=== PATIENT | male | born 1975 | race Hispanic/Latino ===

== ENCOUNTER 2022-04-21 23:49 | Observation (INO) | payer OTHER ==
[~2022-04-21] VITALS: Ht 172.7 cm; Wt 112.3 kg
[2022-04-22] MEDS ORDERED: LEVOTHYROXINE100 MC2 PO (00:20)
--- NOTE | 2022-04-22 03:40 | NUR ---
0248 - ADMITTED VIA W/C FROM ED. ALERT AND ORIENTED, SPEAKS [facility]HARIC WELL, SON AT BEDSIDE - 0300 - IVF INFUSING RFA. DENIES C/O ABD PAIN OR N/V AT THIS TIME. PT COOPERATIVE WITH ADMIT ASSESSMENT AND ASSESSMENT. ivf INFUSING W/O PROBLEMS, AWARE OF NPO STATUS, ORAL SPONGES AT BEDSIDE, ORIENTED TO ROOM, INSTRUCTED ON PREOP AND POST OP EXPECTATIONS IN [place], STATED UNDERSTANDING.
--- NOTE | 2022-04-22 04:15 | NUR ---
AWAKES EASILY, DENIES C/O ABD PAIN OR N/V. IVF INFUSING. NO VOID SINCE ADMIT BUT VOIDED IN THE ED PRIOR TO ADMISSION. ON ROOM AIR, COOPERATIVE. CALL LIGHT AT HANDSA REACH, NPO, ORAL SPONGES AT HANDS REACH, FAMILY ROOMING IN
--- NOTE | 2022-04-22 04:48 | NUR ---
Pt resting, eyes closed, on room air, no distress, IVF infusing, no c/o abd pain or n/v. turns and repositions self in bed, NPO does own oral care. Dr Stephen gallbladder pamphlet given in Serbian, explained in Maori. cont to pablo. Familyat bedside.
--- NOTE | 2022-04-22 06:48 | NUR ---
pT VOIDED LARGE AMOUNT OF DARK COLORED URINE. UP TO EDGE OF BED. IVF INFUSING W/O PROBLEMS. NPO, DOES OWN ORAL CARE. NO C/O ABD PAIN OR EMESIS AT THIS TIME. PLEASANT AND COOPERATIVE. FOLLOWS INSTRUTIONS. FAMILY AT BEDSIDE
--- NOTE | 2022-04-22 07:18 | NUR ---
REPORT RECEIVED FROM NAWAF ISLAS. PT RESTING IN BED, AWAKE AND ALERT. PT DENIES PAIN AND NAUSEA. PT UPDATED ON PLAN OF CARE. PT DENIES REQUESTS OR COMPLAINTS AT THIS TIME. CALL LIGHT WITHIN REACH. BED RAILS UP.
--- NOTE | 2022-04-22 07:37 | NUR ---
MORNING ASSESSMENT AND MEDICATION DUE. DR. TUTTLE TO BEDSIDE TO ROUND ON PT. PT VEBLAIZES UNDERSTANDING OF PLANNED SURGERY AND STATES HIS QUESTIONS HAVE BEEN ANSWERED. 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 PT DENIES PAIN AND NAUSEA. ABDOMEN SOFT BUT TENDER TO TOUCH ESPICALLY IN RIGHT UPPER QUADRANT. BOWEL TONES ACTIVE. PT REPORTS ABDOMEN IS MILDLY DISTENDED. PT ALERAT AND OREINTED TO ALL. CPOX DC'D PER DR. WAGNER'S VERBAL ORDER. PT ENCORUAGED TO AMBULATE. PT STATES HE WOULD LIKE TO SLEEP FOR A BIT LONGER AND THEN WILL GET UP TO WALK. IV REMAINS WNL. PRE OP CHECK LIST COMPLETED. NO ADDITIONAL NEEDS AT THSI TIME. CALL LIGHT WITHIN REACH. BED RAILS UP.
--- NOTE | 2022-04-22 08:50 | NUR ---
THIS RN TO ROOM TO CHECK ON PT. PT RESTING IN BED, AWAKE AND ALERT. PT DENIES PAIN AND NAUSEA. PT ENCOURAGED TO AMBULATE. PT DECLINES AT THIS TIME STATING HE WOULD LIKE TO CONTINUE RESTING. NO ADDITIONAL REQUESTS OR COMPLAINTS. CALL LIGHT WITHIN REACH. BED RAILS UP.
--- NOTE | 2022-04-22 09:42 | NUR ---
HOURLY ROUNDING: PT RESTING IN BED VISITING WITH HIS . PTS STATES ALL HER QUESTIONS HAVE BEEN ANSWERED. PT ENCORUAGED TO AMBULATE, CAROLEE PROVIDED. PT STATES HE WILL GET UP TO WALK IN THE [place] SOON. PT CONTINUES TO DENY PAIN AND NAUSEA. NO ADDITIONAL REQUESTS OR COMPLAINTS. CALL LIGHT WITHIN REACH. BED RAILS UP.
--- NOTE | 2022-04-22 10:42 | NUR ---
ANNY JUAREZ: THIS RN TO ROOM TO CHECK ON PT. PT WATCHING TV WITH . PT STATES HE AMBULATED FRO 20 MINUTES AND "JUST WENT BACK TO BED." NEW IV FLUID BAG HUNG. PT CONTINUES TO DENY PAIN AND NAUSEA. NO ADDITIONAL NEEDS AT THIS TIME. CALL LIGHT WITHIN REACH. BED RAILS UP.
--- NOTE | 2022-04-22 11:35 | NUR ---
THIS RN TO ROOM TO CHECK ON PT. PT RESTING IN BED WATCHING TV WITH FAMILY. PT CONTINUES TO DENY PAIN AND NAUSEA. PT STATES HE HAS BRUSHED HIS TEETH. NO ADDITIONAL REQUESTS OR COMPLAINTS. PT UP DATED ON PLAN OF CARE. CALL LIGHT WITHIN REACH. BED RAILS UP.
[2022-04-22] MEDS ORDERED: LEVOTHYROXINE100 MCG PO (11:56)
--- NOTE | 2022-04-22 11:56 | NUR ---
MED REC COMPLETE
--- NOTE | 2022-04-22 12:47 | NUR ---
HOULRY ROUNDING: THIS RN TO ROOM TO CHECK ON PT. PT UP IN ROOM , AMBULATING, PT DENIES PAIN AND NASUEA. PT DENIES REQUESTS OR COMPLAINTS. PT UPDATED ON PLAN OF CARE AND VERBALIZES UNDERSTANDING. NO ADDITIONAL REQUESTS OR COMPLAINTS. CALL LIGHT WITHIN REACH.
--- NOTE | 2022-04-22 13:00 | NUR ---
Spoke with Issac and he states he lives in a house with his . 1 step, no issues. 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 He is active. He does not use any DME. He is financially ok. He plans on dc to home when cleared medically by his Dr. No needs.
--- NOTE | 2022-04-22 13:25 | NUR ---
LEADER ROUNDING COMPLETED.
--- NOTE | 2022-04-22 14:06 | NUR ---
AFTERNOON ASSESSMENT AND MEDICATION DUE. OR FINISH SPECIALIST STATES TO GIVE ABX AT THIS TIME, NO NEED TO HOLD FOR OR. CHG WIPE DOWN COMPLETED BY PT WITH INSTRCUTIONS FROM THIS RN. PT REMAINS ALERT AND OREINTED TO ALL. PT CONTINUES TO DENY PAIN AND NAUSEA. PT REPORTS PAIN AND NAUSEA "COME WHEN I EAT." ABDOMEN SOFT AND NON TENDER AT THIS TIME. BOWEL TONES ACTIVE. PT REPORTS ABDOMEN SEEMS "NORMAL." MILD DISTENTION NOTED. PT REPORTS HE HAS BEEN UP IN THE ROOM AMBULATING. PT ENCORUAGED TO AMBULATE IN [place]. PT UPDATED ON PLAN OF CARE AND TIME FOR SURGERY. PT VERBALIZES UNDERSTANDING AND STATES HIS QUESTIONS HAVE BEEN ANSWERED. PT TALKS ABOUT HIS FAMILY, PLESENT AND COOPERATIVE. NO ADDITIONAL REQUESTS OR COMPLAINTS. CALL LIGHT WITHIN REACH. BED RAILS UP.
--- NOTE | 2022-04-22 15:09 | NUR ---
HOURLY ROUDING: THIS RN TO ROOM TO CHECK ON PT. PT VISITING WITH FAMILY. PT CONTINUES TO DENY PAIN AND NAUSEA. NO ADDITIONAL REQUESTS OR COMPLAINTS. CALL LIGHT WITHIN REACH. BED RAILS UP.
--- NOTE | 2022-04-22 15:43 | NUR ---
MAUDE OLIVEIRA TO BEDSIDE TO REVIEW CASE WITH PT. PT AND FAMILY VERBALIZES UNDERSTANDING AND STATE THEIR QUESTIONS HAVE BEEN ANSWERED. IV ASSESSED, WNL. FLUSHES EASILY. FLUIDS BY IV PUMP STOPPED. LR ON STRAIGHT TUBING PLACED PER OR ORDERS. NO ADDITIONAL NEEDS AT THIS TIME. AWAITING OR TEAM ARRIVAL TO TRANSFER PT TO OR.
--- NOTE | 2022-04-22 16:00 | NUR ---
JULIO DIVER'S TENDER, ARRIVED TO TAKE PT TO OR. NO ADDITIONAL REQUESTS, CONCERNS OR QUESTIONS. PT TO OR.
--- NOTE | 2022-04-22 16:30 | NUR ---
PT HERE FOR CHOLEYCYSTECTOMY. PT INDPENDANT IN ROOM THIS SHIFT PRIOR TO OPERATION. PT NPO FOR PROCEEDURE, IV FLUIDS INFUSING. PT DENIES PAIN AND NAUSEA THIS SHIFT STATING PAIN IS MOSTLY WHEN HE IS EATING. AMBULATION ENCOURAGED THROUGHOUT SHIFT. AWAITING PTS RETURN FROM OR. PT VOIDING QUANTITY SUFFICIENT. PT USES CALL LIGHT AND MAKES NEEDS KNOWN. PT DECLINES TRANSLATION SERVICES THROUGHOUT SHIFT PREFEREING TO COMMUNICATE ON HIS OWN. PT FREQUENTLY REMINED THAT TRANSLATION SERVICES ARE AVALIABLE IF HE REQUESTS.
--- NOTE | 2022-04-22 18:50 | NUR ---
PT ARRIVED FROM PACU. REPORT RECEIVED FROM NAWAF HARRIS. PT REMAIN ON 2L O2 BY MI WITH OXYGEN SATURATIONS IN THE LOW 90'S. PT COUGHING FREQUENTLY. NON PRODUCTIVE DRY COUGH. UPPER AIRWAY COURSE SOUNDS HEARED. LOWER LOBES OF LUNGS CLEAR. CPOX IN PLACE WITH OXGYEN SATURATIONS 90-92% ON 2L O2 BY MI. I.S. USE DEMONSTRATED. ABDOMEN SOFT BUT TENDER TO TOUCH. PT REPORTS 3/10 PAIN AND DENIES NEED FOR PAIN MEDIATION AT THIS TIME. PT DENIES NAUSEA. STERI STRIPS REMAIN INTACT OVER LAP SITES X5 WITH SMALL AMOUNTS OF RED DRAINAGE NOTED. PICTURES REVIEWED WITH PT AND FAMILY. ICE WATER PROVIDED. NO ADDITIONAL NEEDS AT THIS TIME. CALL LIGHT WINDSSI HoldingsIN REACH. BED RAILS UP.
--- NOTE | 2022-04-22 19:10 | NUR ---
04/22/22 191 Nicole Allen 1801 PT ARRIVED TO PACU, PT COUGHING OFF AND ON AND GRABBING AT O2 MASK. O2 SAT DECREASED AND GLASS EMBOSSER AND BUFFET WAITER/WAITRESS AT BEDSIDE. HOB INCREASED AND RNS TRYING TO REORIENT PT TO PACU. 180 PT CONTINUES TO PULL O2 MASK OFF AND EDUCATION GIVEN, PT TRYING TO REORIENT PT TO PACU AND PLACES O2 MASK ON. RN BRACES ABD WITH PILLOW WHILE PT IS COUGHING. DIMINISHED LUNG SOUNDS BILATERAL. 181 XRAY AT BEDSIDE AND HOB INCREASED. PT FALLS ASLEEP EASILY BUT MORE ABLE TO FOLLOW COMMANDS. O2 REMAINS IN PLACE WHEN ASKED, SNORING NOTED WHEN ASLEEP. 181 BREATHING TREATMENT STARTED WITH MASK AT 6L. EDUCATION GIVEN. PT DEEP BREATHING AND COUGHING. 182 BREAHTING TREATMENT FINISHED AND 4L NC PLACED. PT REPORTS 2/10 PAIN AND TOLERBALE. MASK REMOVED. 1835 PT MORE AWAKE AND EATING ICE CHIPS, PT DENIES NAUSEA. INCENTIVE SPIROMETER USED AND PT ABLE TO FOLLOW COMMANDS. O2 DECREASED TO 2L NC. 185 REPORT TO MED-SURG WITH FAMILY AT BEDSIDE. PT UPDATED ABOUT SURGERY AND ALL QUESTIONS ANSWERED. VSS. BED PLUGGED IN AND CALL LIGHT WITHIN REACH.
--- NOTE | 2022-04-22 19:15 | NUR ---
pt back from pacu at 1850, alert and oriented, on 2LNC, post op CPOX at [facility], scds in place, no c/opain. c/o sore throat, ice chips given and relief stated, IVF infusing. abd [address], 2 w ss draiange. denies passing gas. at bedside
--- NOTE | 2022-04-22 20:01 | NUR ---
awake, alert and orineted. on 2lnc, post op cpox at bedside, wnl, ice chips for sore throat, no c/o sob, repositioned in bed by self. abd distended upper abd 5 lap sites and at umbilical area moist first upper abd and umbilical ss w ss drainage. very faint bowel tones at this time. denies burping or passing gas at this time, SCDS in place, IVF infusing w/o problems. tolerating ice chips and broth, no emesis, no c/o pain. at bedside. using call lit
--- NOTE | 2022-04-22 21:00 | NUR ---
awake, on 2lnc, visiting with family, no c/o pain, abd dressing with old drainage, not passing gas, moves legs, scds in place, working on IS. family at bedside, tolerating ice and sips of fluid
--- NOTE | 2022-04-22 23:02 | NUR ---
PT UP TO EDGE OF BED, TOLERATED WELL, O2 OFF, CPOX IN PLACE, WALKED TO BR VOIDED LARGE AMOUNT OF CLEAR YELLOW URINE. BACK TO BED, CPOX BACK ON, O2 BACK ON 1LNC, ABD SLIGHT DISTENTION, ORAL BURPING PRESENT, DENIES PASSING RECTAL GAS, ABD LAP SITES NO CHANGES, VERY FAINT BOWEL TONES PRESENT. IVF INFUSIGN W/O PROBLEMS, SCDS IN PLACE, HELPED REPOSITION, ATE 1/2 SQNDWICH EARLIER, JELLO, ICE SHIPS AND WATER, TOLERATING WELL. HOB ELEVATED. FAMILY IN ROOM PT TOLERATD WALKING TO BR AND BACK VERY WELL
--- NOTE | 2022-04-23 00:37 | NUR ---
ON O2 POST OP, CPOX AT BEDSIDE SATS 95%, NO DISTRESS, IVF INFUSING, EYES CLOSED, FLUIDS AND CALL LIGHT AT HANDS REACH. SCDS IN PLACE. IN ROOM
--- NOTE | 2022-04-23 02:18 | NUR ---
IN TO GET VS, NO FURTHER NEEDS AT THIS TIME
--- NOTE | 2022-04-23 02:18 | NUR ---
AWAKES EASILY, ON 2LNC, CPOX AT BEDSIDE 96%, NO C/O PAIN, ivf INFUSING W/O PROBLEMS. FLUIDS AND CALL LIGHT AT HANDS REACH, SCDS IN PLACE
--- NOTE | 2022-04-23 04:38 | NUR ---
Pt had a Lap samson surgery, 5 abd lap sites withold drainage. upper abd slight distention, MARICEL, burping but denies passing gas. Up to edge of bed and walked to br, tolerated well, voided large amounts of urine, no bm. Pt was on 2LNC O2 on return from PACU, taken off after getting up to br and desatted to 84-87%, placed back on 2LNC, cpox on/at bedside. Pt was given a trial of no O2 again later on by RT and desatted again. Continues on O2 2LNC, sats 94-96%, Has slep off and on this shift. was c/o abd pain and medicated with Morphine and scheduled Tylenol effective, was c/o sore throat on return from PACU tolerated ice chips, had slight dry non productive cough, resolved at this time. IVF infusing w/o problems. no c/o adverse reaction to IV abx. SCDS in place. Pt tolerated diet and fluids well, no c/o emesis. uses call light. family at bedside infusing w/o problems
--- NOTE | 2022-04-23 05:59 | NUR ---
Pt awakes easily, O2 off, CPOX in place, sats 94% on room air. reposition self in bed, abd slight distention faint hypoactive bowel tones auscultated, denies passing gas. 5 lap sites with covered with ss and umbilical area with ss and gauze, old drainage. Denies needing to void this am. voided large amounts of urine at mid shift. tolerating liquids well. no emesis. IVF infusing, SCDS in place
--- NOTE | 2022-04-23 07:12 | NUR ---
REPORT RECEIVED FROM NAWAF ISLAS. PT RESTING IN BED, AWAKEN AND ALERT. PT REPORTS 3/10 PAIN IN ABDOMEN AND DENIES NEED FOR PAIN MEDICATION. COFFEE PROVIDED. NO ADDITIONAL REQUESTS OR COMPLAINTS. CALL LIGHT WITHIN REACH. BED RAILS UP.
--- NOTE | 2022-04-23 08:11 | NUR ---
MORNING ASSESSMENT AND MEDICATION DUE. PT RESTING IN BED WATCHING TV. PT AWAKE AND ALERT. PT REPORTS 3/10 PAIN IN RIGHT UPPER QUADRANT OF ABDOMEN. PT DENIES NEED FOR PAIN MEDICATION. PT ENCOURAGED TO AMBULATE IN [place] AND STATES HE WILL AFTER BREAKFAST. PT DENIES NAUSEA. ABDOMEN SOFT AND NON TENDER BUT FOR RUQ. PT DENIES ANY PASSING OF GAS YET. BOWEL TONES HYPO ACTIVE. LUNG SOUNDS CLEAR THROUGHOUT. PT TOELRATING ROOM AIR WITH OXYGEN SATUARTIONS 92-96%. PT TOLEARTING REGULAR DIET AND VOIDING QUANTITY SUFFICIENT. PT REPORTS HE FEELS HE IS READY FOR DISCHRAGE, AWAITING MD ORDER. STERI STRIPS TO ABDOMINAL LAPAROSCOPIC SITES X5 INTACT, NO NEW DRAINAGE NOTED. SMALL AMONT OF OLD RED DRY DRAINAGE NOTED ON STERI STRIPS. EDGES WELL APROXIMATED. PT EATING BREAKFAST. NO ADDITIONAL REQUESTS OR COMPLAINTS. CALL LIGHT WITHIN REACH. BED RAILS UP.
--- NOTE | 2022-04-23 09:06 | NUR ---
HOURLY ROUNDING: THIS RN TO ROOM TO CHECK ON PT. PT UP IN ROOM HEADING TO RESTROOM. PT STEADY ON FEET. PT URBAN TO EAT 100% OF BREAKFAST. PT REPORTS PAIN REMAINS AT 3/10 AND CONTINUES TO DENY NEED FOR PAIN MEDICATION. PT VOIDS AND REPORTS HE IS NOW PASSING GAS. PT UP TO AMBULATE IN [place] LAP WITH STAND BY ASSIST FROM THIS RN. NO ADDITIONAL REQUESTS OR COMPLAINTS. CALL LIGHT WITHIN REACH. BED RAILS UP. PT UP IN ROOM, INDEPENDANT.
--- NOTE | 2022-04-23 10:09 | NUR ---
HOULRY ROUNDING: PT RESTING IN BED. REPORTS HE WALKED AN ADDIITONAL 2 LAPS AND CONTINUES TO PASS GAS. PT REPORTS 2-3/10 PAIN IN RIGHT UPPER QUADRANT AND AT INCISION SITES. PT CONTINUES TO DENY NEED FOR PAIN MEDICATION. PT DENIES NASUEA. NO ADDITIONAL REQUESTS OR COMPLAINTS. CALL LIGHT WITHIN REACH. BED RAILS UP.
--- NOTE | 2022-04-23 11:15 | NUR ---
HOURLY ROUDING: THIS RN TO ROOM TO CHECK ON PT. PT UP TO RESTROOM. VOIDED 850ML CLEAR YELLOW URINE. PT REPORTS HE HAS A SMALL AMOUNT OF BLOOD IN HIS SPUTUM. VISULAZIED BY THIS RN AND NOTED TO BE VERY SCANT AMOUNT. PT REPORTS 2/10 PAIN IN ABDOMEN. OXYGEN SATURATION CONSISTANTLY ABOVE 95% ON ROOM AIR. COPX DC'D TO ASSIST WITH PT MOBLIBTY. COUGH INFREQUENT. PT DENIES NAUSEA. NO ADDITIONAL REQUESTS OR COMPLAINTS. CALL LIGHT WITHIN REACH. BED RAILS UP.
--- NOTE | 2022-04-23 11:32 | NUR ---
PATIENT WAS WALKING IN THE [place] THIS MORING ASKED HIM HOW MANY LAPS AND HE SAID HE DID SIX LAPS AROUND MED SURG.
--- NOTE | 2022-04-23 12:00 | NUR ---
Spoke with pt. States he is doing well following surgery. Denies pain while at rest. Denies needs for discharge to home. Plans on dc today with family.
--- NOTE | 2022-04-23 12:59 | NUR ---
HOURLY ROUNDING: PT FINISHED WITH LUNCH. PT REPORTS ABDOMINAL PAIN IS NOW 3/10 AND "WORSE WHEN I COUGH" PT STATES HE WOULD LIKE TO WAIT FOR HIS 1400 MEDICATIONS AND DOES NOT WANT ADDITIONAL PAIN MEDICATION AT THIS TIME. PT ENCORAUGED TO CALL IF PAIN WORSENS. PT DENIES NAUSEA. OXYGEN SATURATION REMAINS 96% ON ROOM AIR. NO ADDITIONAL REQUESTS OR COMPLAINTS. CALL LIGHT WITHIN REACH. BED RAILS UP.
[2022-04-23] MEDS ORDERED: ACETAMINOPHEN500 MG PO (13:04)
[2022-04-23] MEDS ORDERED: OXYCODON-ACETA1 EAC2 PO (13:04)
[2022-04-23] MEDS ORDERED: TYLENOL EXTRA500 MG PO (13:05)
--- NOTE | 2022-04-23 13:23 | NUR ---
DR. TUTTLE TO BEDSIDE FOR ROUNDS. DISCHARGE ORDERS GIVEN. IV DC'D PER PROTOCOL, GAUZE AND COBAN APPLIED. VITAL SIGNS STABLE. PT REPORTS 3/10 PAIN, DR. TUTTLE STATES TO GIVEN TYLENOL NOW. PT DENIES NEED FOR STRONGER PAIN MEDICAITONS. DR. TUTTLE STATES TO HOLD 1400 DOSE OF ANCEF AND HYDROCORTISONE. DOSES NOT GIVEN. DISCHARGE INSTRUCTIONS REVIEWED WITH PT. PT VERBALZIES AND REPEATS BACK ALL INSTRUCTIONS AND MEDICATION. PT STATES HIS QUESTIONS HAVE BEEN ANSWERED. PT UP TO DRESS SELF, NO ASSISTANCE NEEDED. PT CALLS HIS AND IS WAITING FOR HER ARRIVAL. NO ADDITIONAL NEEDS AT THIS TIME. CALL LIGHT WITHIN REACH.
--- NOTE | 2022-04-23 13:57 | NUR ---
PTS ARRIVED. PT WHEELED FROM MED/SURG WITH ALL BELONGINGS. NO ADDITIONAL REQUESTS OR CONCERNS.
--- NOTE | 2022-04-25 14:34 | OR ---
[facility] [address], [place] [address] Signed DATE OF OPERATION: 04/22/2022 SURGEON: Apoorva Tuttle MD PREOPERATIVE DIAGNOSES: 1. Acute calculous cholecystitis. 2. Obesity. POSTOPERATIVE DIAGNOSES: 1. Acute calculous cholecystitis. 2. Obesity. PROCEDURES: 1. Laparoscopic cholecystectomy with intraoperative cholangiogram, prolonged, complicated, difficult. 2. Fluoroscopy. ANESTHESIA: General endotracheal by Arslan Montana CRNA and local 20 mL of 0.25% Marcaine with epinephrine. INDICATION: This 46-year-old man lives in [facility] and is a patient of Dr. Michael Pacheco. The patient has had recurrent bouts of right subcostal and epigastric pain since May of last year. He has been evaluated and found to have gallstones. He has been seen primarily in [place]. He was seen in [place] once again for similar symptoms only few days ago. The patient has been awaiting opportunity for cholecystectomy and consultation with a surgeon, but this has not been forthcoming. He presented to the emergency room yesterday late at night with severe epigastric and right subcostal pain once again. Evaluation by Dr. Romero Wright, emergency room physician include a gallbladder ultrasound confirming large gallstones and debris within the gallbladder. His white count was elevated, but liver enzymes were normal. He is now to undergo cholecystectomy preferred by laparoscopic approach. He understands the risks of bleeding, infection, perforation. FINDINGS: The gallbladder was quite tensely distended and quite inflamed. The liver was normal. Decompression of the gallbladder was required. An attempted cholangiogram was undertaken, but inadequate images were noted as Electronically Signed By: APOORVA TUTTLE MD 04/25/22 1434 PATIENT NAME: BRENDA PEREZ OPERATIVE REPORT DATE OF : 71 REPORT #: [id number] PHYSICIAN: APOORVA TUTTLE MD PCP: MICHAEL PACHECO DO REPORT IS CONFIDENTIAL AND NOT TO BE RELEASED WITHOUT AUTHORIZATION [facility] [address], [place] [address] Signed distraction of the cystic duct from the gallbladder itself was noted and therefore the cystic duct was securely clipped with 3 clips without adequate cholangiogram images. The gallbladder itself was quite markedly inflamed and within it were several large gallstones at least 2 of them nearly 2 cm in size. DESCRIPTION OF PROCEDURE: The patient was brought to the operating room, given a general endotracheal anesthetic. He was redosed with Ancef intravenously. He was given a general endotracheal anesthetic without problem. The abdomen was clipped and prepared with a chlorhexidine solution and draped sterilely. Infraumbilical incision was made and using an open Tiera cannula technique, pneumoperitoneum was achieved to a level of 14 mmHg of carbon dioxide gas. Intra-abdominal inspection showed no sign of ascites or carcinomatosis. There was a fair amount of inflammation and edema in the region of the gallbladder. It was distended. The liver was reasonably normal. Three additional trocars were placed in usual configuration in the subxiphoid, right midclavicular, and right anterior axillary line. Attempts to grasp the gallbladder were unsuccessful due to the distention of the gallbladder and on that basis, a trocar was used to decompress the gallbladder of dark bile. Although decompression was undertaken, it did not change the appearance of the gallbladder all that much strangely. The puncture site was grasped and elevated cephalad. In the infundibulum, there was tense distention and additional attempted decompression was undertaken inferiorly. This did not help much. This implied that large stones were taking that much of the lumen of the gallbladder. Infundibulum was grasped using blunt and electrocautery dissection and the triangle of Calot was dissected free. Meticulous care was taken in doing so as there was fair amount of inflammation and edema. Ultimately, a dominant cystic artery was identified, which was doubly clipped and ultimately divided. This allowed for good dissection of the cystic duct, which was relatively small. The clips were applied across gallbladder cystic duct junction and this provided excellent visualization of the anatomy. A transverse choledochotomy was made in the cystic duct and egress of clear bile was noted. An Brown type cholangiocatheter was placed in the cystic duct and plans made for cholangiography. Not mentioned previously was the placement of an additional 5 mm port in the epigastric area to provide better exposure of the duodenum using a fan retractor. Cholangiogram was undertaken, which showed spillage of contrast. Examination showed distraction of the cystic duct from the gallbladder. Further attempts at cholangiogram were deemed inadvisable and not likely successful and on that basis, the cystic duct was gently elevated and triply clipped and plans made for further dissection. The gallbladder was dissected free in a retrograde fashion using electrocautery. Hemostasis was assured with electrocautery well. There was no sign of bile leak or other problem. The gallbladder was placed in an endobag and extracted through the Electronically Signed By: APOORVA TUTTLE MD 04/25/22 1434 PATIENT NAME: BRENDA PEREZ OPERATIVE REPORT DATE OF : 71 REPORT #: [id number] PHYSICIAN: APOORVA TUTTLE MD PCP: MICHAEL PACHECO DO REPORT IS CONFIDENTIAL AND NOT TO BE RELEASED WITHOUT AUTHORIZATION [facility] [address] [facility] [place] [address] Signed infraumbilical port site without problem. Irrigation was undertaken in subhepatic space. Some Tisseel fibrin glue was applied to the surface and subsequently some Hilton powder. A drain was not required. The trocars removed under direct visualization, showing no sign of bleeding. Plans were then made for closure. The infraumbilical fascial incision reapproximated with interrupted 0 Vicryl suture. 20 mL of 0.25% Marcaine was injected in the trocar sites. The skin was closed with interrupted 3-0 Vicryl. The gallbladder was examined on the back table and found to have multiple large gallstones and no sign of neoplasm. Steri-Strips were applied. Initial extubation of the patient did result in some laryngospasm, requiring additional administration of succinylcholine to break the laryngospasm. This was subsequently found to be acceptable and spontaneous ventilations noted at this time without signs of laryngospasm. It is anticipated he will be transferred to the recovery room in due course. MD MATY Moore/COLEEN /[id number] cc: DO Romero Franco MD Copies: ROMERO WRIGHT MD ~ Electronically Signed By: APOORVA TUTTLE MD 04/25/22 1434 PATIENT NAME: BRENDA PEREZ OPERATIVE REPORT DATE OF : 71 REPORT #: [id number] PHYSICIAN: APOORVA TUTTLE MD PCP: MICHAEL PACHECO DO REPORT IS CONFIDENTIAL AND NOT TO BE RELEASED WITHOUT AUTHORIZATION
--- NOTE | 2022-04-25 14:34 | HP ---
[facility] [address] [place], [place] [address] Signed ADMISSION DATE: 04/22/2022 REASON FOR ADMISSION: Acute calculous cholecystitis. HISTORY OF PRESENT ILLNESS: This 46-year-old man is from the [facility], [place] and presented to the emergency room with evaluation by Dr. Wright with complaints of right upper abdominal pain. He has had episodes of right upper abdominal pain since 2020 in May. He was in [place] for this original evaluation. He had an ultrasound showed gallstones. A plan for followup with a surgeon for cholecystectomy was made, but he says that "no one ever called me" as to surgery and therefore he did not followthrough with it. He has had episodes of severe right upper abdominal pain episodically. He was noted to have significant symptoms four days ago, was seen once again in [place] and ultrasound confirmed gallstones. Tonight he presents to the emergency room here with recurrent right upper abdominal and flank pain after eating a hot dog. He has had persistent and constant pain, nausea and vomiting x4 episodes and no other symptoms of concern. He is admitted for further evaluation and care. PAST MEDICAL HISTORY: Notable for hypothyroidism for which he takes Synthroid 100 mcg p.o. daily. ALLERGIES: He has no known drug allergies. REVIEW OF SYSTEMS: He denies any shortness of breath or chest pain. He has had no dysphagia or dysuria. Denies any hematemesis or blood per rectum. PHYSICAL EXAMINATION: GENERAL: A relatively large white man with a BMI of 37.6 who is currently nontoxic in appearance. HEENT: Mucous membranes are slightly dry. NECK: Trachea is midline. CHEST: Clear. HEART: Regular. ABDOMEN: Mildly distended. There is minimal tenderness in right subcostal area. There is no palpable mass. EXTREMITIES: Show no clubbing, cyanosis, or edema. LAB STUDIES: Electronically Signed By: APOORVA TUTTLE MD 04/25/22 1434 PATIENT NAME: BRENDA PEREZ HISTORY AND PHYSICAL DATE OF : 71 REPORT #: [id number] PHYSICIAN: APOORVA TUTTLE MD PCP: MOR HARRIS DO REPORT IS CONFIDENTIAL AND NOT TO BE RELEASED WITHOUT AUTHORIZATION [facility] [address], [place] [address] Signed In the emergency room showed a white count of 14.0, hematocrit 44.6, platelets 196,000. Creatinine is 1.1. Electrolytes are normal. Liver enzymes show an alkaline phosphatase which is normal at 97 and a bilirubin of 0.4. Urinalysis is essentially normal. I have reviewed the ultrasound and the ultrasound reports dated at 0100 on April 22. This did show gallstones and sludge. Fatty liver is noted as well. ASSESSMENT: The patient has acute calculous cholecystitis and he has had recurrent bouts of biliary colic with gallstones over the past year. Evaluated and considered in [place], but no definitive follow-through with operation has been outlined. I have admitted him for IV fluids, IV antibiotics and plan for cholecystectomy preferred by laparoscopic approach. The risk of bleeding, infection, bile duct injury, need for open procedure, need for common duct exploration and so forth were all reviewed with him. His son is present who understands all of this as well. We will plan to do this later in the day after additional fluids, IV antibiotics, and so on. MD MATY Moore/MODL /[id number] cc: Romero Wright MD Copies: ROMERO WRIGHT MD ~ Electronically Signed By: APOORVA TUTTLE MD 04/25/22 1434 PATIENT NAME: DOROTEO SINGHBRENDA HISTORY AND PHYSICAL DATE OF : 71 REPORT #: [id number] PHYSICIAN: APOORVA TUTTLE MD PCP: MOR HARRIS DO REPORT IS CONFIDENTIAL AND NOT TO BE RELEASED WITHOUT AUTHORIZATION
--- NOTE | 2022-04-26 15:12 | NUR ---
SPOKE WITH PATIENT BY PHONE FOR POST DISCHARGE F/U. STATES HE IS FEELING WELL. STATES EATING, DRINKING, VOIDING, HAVING BOWEL MOVEMENT. TAKING REGULAR TYLENOL FOR PAIN AND IS COMFORTABLE. KNOWS TO CALL DR TUTTLE TOMORROW TO MAKE F/U APPT AND HAS HIS NUMBER. KNOWS TO CALL HIM FOR ANY ISSUES OR RETURN TO HOSPITAL. FELT HE UNDERSTOOD EVERYTHING. NO ISSUES OR QUESTIONS AT THIS TIME.
--- NOTE | 2022-04-27 21:56 | PATH ---
[facility] [address] [place], [place] [address] Signed SPECIMEN(S): A GALLBLADDER AND STONES SPECIMEN SOURCE: A. GALLBLADDER AND STONES CLINICAL HISTORY: Cholecystitis and cholelithiasis FINAL PATHOLOGIC DIAGNOSIS: Gallbladder, cholecystectomy: - Chronic cholecystitis. - Cholelithiasis. NRT:cml:C2NR MICROSCOPIC EXAMINATION: Histologic sections of all submitted blocks are examined by light microscopy. These findings, together with the gross examination, support the pathologic diagnosis. GROSS DESCRIPTION: The specimen, labeled "BB, A," and designated on the requisition "gallbladder stones," is received in formalin and consists of: Specimen: Previously incised gallbladder. Dimensions: Upon reconstruction, 8.2 x 3.2 x 1.9 cm. Serosa: Blandon-white, smooth, and glistening. Cystic Duct: 0.5 cm in diameter, patent, and the margin is inked blue. Calculi: Three, hard, granular, brown to yellow, somewhat multifaceted calculi from 2.2 up to 2.5 cm in greatest dimension are found within the specimen container. Mucosa: Blandon to dark brown, velvety to trabecular, and glistening. Wall thickness: Focally edematous and 0.2 to 0.4 cm. Lymph node: No pericystic lymph nodes are grossly identified. Additional: None. Artist Model sections are submitted in cassette (A1). AI (under the direct supervision of a pathologist) The Gross Description was prepared using a voice recognition system. The report was reviewed for accuracy; however, sound-alike word errors, addition and/or deletions may occur. If there is any question about this report, please contact Client Services. PATIENT NAME: BRENDA PEREZ PATHOLOGY DATE OF : 71 REPORT #: [id number] PHYSICIAN: MARIN PATHOLOGY PCP: MOR HARRIS DO REPORT IS CONFIDENTIAL AND NOT TO BE RELEASED WITHOUT AUTHORIZATION [facility] [address] [place], [place] [address] Signed PERFORMING LABORATORY: The technical component was performed by [facility], [address] [place] [address] (CLIA# [id number]). [facility] [address] [place] [address] (CLIA# [id number]). Diagnostician: Sun Tomlinson MD Pathologist Electronically Signed 04/27/2022 Copies: ~ PATIENT NAME: BRENDA PEREZ PATHOLOGY DATE OF : 71 REPORT #: [id number] PHYSICIAN: [facility] PATHOLOG[facility] PCP: MOR HARRIS DO REPORT IS CONFIDENTIAL AND NOT TO BE RELEASED WITHOUT AUTHORIZATION
== END 2022-04-23 14:02 | disposition home or self-care (01) ==
LOC: ED 23:49 → MS 23:51
PROVIDERS: ADMIT Surgery; ATTEND Surgery
PROC: BF10YZZ Fluoroscopy of Bile Ducts using Other Contrast (ICD-10-PCS; 2022-04-22)
PROC: 0FT44ZZ Resection of Gallbladder, Percutaneous Endoscopic Approach (ICD-10-PCS; principal; 2022-04-22 16:30)
DX: K80.12 Calculus of gallbladder with acute and chronic cholecystitis without obstruction (principal); E03.9 Hypothyroidism, unspecified; E66.9 Obesity, unspecified; Z20.822 Contact with and (suspected) exposure to COVID-19; Z68.37 Body mass index [BMI] 37.0-37.9, adult
CPT/HCPCS: 00790; 36415; 71045; 74300; 76705; 80053; 81001; 83690; 85025; 94760; 94762; 96361; 96372; 96374; 96375; 96376; 99285-25; A9270; C9803; G0378; J0330; J0690; J1100; J1170; J1644; J1720; J1885; J2250; J2270; J2405; J2704; J3010; J7030; J7121; Q9967; U0003

== ENCOUNTER 2022-10-25 11:47 | Day surgery (SDC) | payer OTHER ==
[~2022-10-25] VITALS: Ht 170.2 cm; Wt 115.0 kg
[~2022-10-25 11:47] MED LIST: ACETAMINOPHEN500 MG PO; LEVOTHYROXINE100 MC2 PO; LEVOTHYROXINE100 MCG PO; OXYCODON-ACETA1 EAC2 PO; TYLENOL EXTRA500 MG PO
[2022-10-25 12:29] VITALS: BP 151/87
[2022-10-25 14:13] VITALS: BP 138/85
--- NOTE | 2022-10-25 18:30 | OR ---
[facility] [address] [place], [place] [address] Signed DATE OF OPERATION: 10/25/2022 SURGEON: Apoorva Tuttle MD PREOPERATIVE DIAGNOSIS: Colon screening. POSTOPERATIVE DIAGNOSES: 1. Minimal diverticular changes sigmoid. 2. Small polyp right colon (excised). PROCEDURE: Total colonoscopy to cecum with cold snare polypectomy x1. ANESTHESIA: Intravenous sedation; fentanyl 150 mcg and Versed 7 mg. INDICATION: This 46-year-old white man is a patient of Dr. Pacheco (Michael Pacheco D.O.) and known to me from the past having undergone laparoscopic cholecystectomy with cholangiogram. The patient has not had screening colonoscopy in the past. He is here for that purpose at this time. He additionally has hypothyroidism. He is admitted to undergo colonoscopy for screening. He understands the risk of bleeding, infection, perforation, and other unforeseen complications. Understanding that he wished to proceed. FINDINGS: The prep was adequate. Complete colonoscopy was undertaken of the cecum. He had one small slightly pedunculated polyp of the right colon which was excised with cold snare technique. The remaining colon was normal. DESCRIPTION OF PROCEDURE: The patient was brought to the endoscopy suite and placed in the lateral decubitus position. Given intravenous sedation to the point of slurred speech and nystagmus with full cardiopulmonary monitoring. Digital rectal examination was normal. An Olympus video colonoscope was passed in the rectum and manipulated throughout the colon ultimately intubating the cecum. Irrigation was required as usual. The scope was withdrawn from that point. In the mid ascending colon, there was a small pedunculated polyp. This was excised with cold snare technique and passed to pathology. Further Electronically Signed By: APOORVA TUTTLE MD 10/25/22 1830 PATIENT NAME: BRENDA PEREZ OPERATIVE REPORT DATE OF : 71 REPORT #: [id number] PHYSICIAN: APOORVA TUTTLE MD PCP: MICHAEL PACHECO DO REPORT IS CONFIDENTIAL AND NOT TO BE RELEASED WITHOUT AUTHORIZATION [facility] [address] [place] [id number] Signed withdrawal of the scope showed no other abnormality into the sigmoid where diverticular changes were noted. Retroflexed view was normal, though there was an internal hemorrhoid. The scope was removed and the patient was taken to the recovery room in good condition. CONCLUDING DIAGNOSIS: Polyp x1. PLAN: Recommend repeat colonoscopy in three years, sooner if clinically indicated. He will return to the ongoing care of Dr. Michael Pacheco, otherwise. MD MATY Moore/COLEEN /[id number] cc: Clarisa Pacheco DO Copies: MICHAEL PACHECO DO ~ Electronically Signed By: APOORVA TUTTLE MD 10/25/22 1830 PATIENT NAME: BRENDA PEREZ OPERATIVE REPORT DATE OF : 71 REPORT #: [id number] PHYSICIAN: APOORVA TUTTLE MD PCP: MICHAEL PACHECO DO REPORT IS CONFIDENTIAL AND NOT TO BE RELEASED WITHOUT AUTHORIZATION
== END 2022-10-25 14:30 | disposition home or self-care (01) ==
LOC: OPS 11:47 → DS 11:52 → OPS 13:00 → DS 13:00 → OPS 14:30
PROVIDERS: ATTEND Surgery
PROC: 0DBK8ZZ Excision of Ascending Colon, Via Natural or Artificial Opening Endoscopic (ICD-10-PCS; principal; 2022-10-25 13:00)
DX: Z12.11 Encounter for screening for malignant neoplasm of colon (principal); K57.30 Diverticulosis of large intestine without perforation or abscess without bleeding; K63.5 Polyp of colon; E66.9 Obesity, unspecified; G57.11 Meralgia paresthetica, right lower limb; K80.00 Calculus of gallbladder with acute cholecystitis without obstruction; Z68.39 Body mass index [BMI] 39.0-39.9, adult
CPT/HCPCS: 88305; 99153; G0500; J0780; J2250; J2405; J3010; J7121